=== PATIENT | female | born 1980 | race Caucasian/White ===

== ENCOUNTER 2019-01-30 10:24 | Emergency (ER) | payer MEDICAID, OTHER ==
[~2019-01-30] VITALS: Ht 152.4 cm; Wt 71.0 kg
--- NOTE | 2019-01-30 11:08 | NUR ---
PT AMBULATORY TO ROOM T1 W/ C/O N/V/D. STATES DIARRHEA STARTED SATURDAY. UNKNOWN AMOUNTS PER DAY. N/V STARTED TODAY. PT HAS NOT HAD BOUTS OF N/V/D WHILE IN ED. PT RESTING ON GURNEY. NADN. MONITORS APPLIED. WARM BLANKET PROVIDED.
[2019-01-30 11:20] LABS: HCG UR SG 1.009 (1.003-1.030); MICROSCOPIC NOT IND
[2019-01-30 11:25] LABS: CULTURE INDICATED? NO
[2019-01-30 11:51] LABS: BASOPHILS # (AUTO) 0.02 x10^3/uL (0-0.1); BASOPHILS % (AUTO) 0 % (0-1); EOSINOPHILS # (AUTO) 0.03 x10^3/uL (0-0.4); EOSINOPHILS % (AUTO) 0 % (1-7); LYMPHOCYTES # (AUTO) 1.65 x10^3/uL (1-3.4); LYMPHOCYTES % (AUTO) 17 % (22-44); MD NO; MEAN CORPUSCULAR HEMOGLOBIN 32.1 pg (27.0-34.8); MEAN CORPUSCULAR HGB CONC 33.8 g/dL (32.4-35.8); MEAN CORPUSCULAR VOLUME 95.2 fL (80-100); MEAN PLATELET VOLUME 10.1 fL (7.4-10.4); MONOCYTES # (AUTO) 0.57 x10^3/uL (0.2-0.8); MONOCYTES % (AUTO) 6 % (2-9); NEUTROPHILS # (AUTO) 7.48 x10^3/uL (1.8-6.8); NEUTROPHILS % (AUTO) 77 % (42-75); PLATELET COUNT 221 x10^3/uL (130-400); RED BLOOD COUNT 4.28 x10^6/uL (3.82-5.3); RED CELL DISTRIBUTION WIDTH 13.2 % (9.6-15.2)
--- NOTE | 2019-01-30 11:51 | NUR ---
PT RESTING ON GURNEY. NADN. DAVILA.
[2019-01-30 11:58] LABS: ALANINE AMINOTRANSFERASE 30 U/L (12-78); ALBUMIN 3.7 g/dL (3.4-5.0); ANION GAP 7 mmol/L (5-15); CALCIUM 9.2 mg/dL (8.5-10.1); CHLORIDE 110 mmol/L (98-107); CREATININE 0.57 mg/dL (0.55-1.02)
[2019-01-30 12:00] LABS: ALKALINE PHOSPHATASE 82 U/L (45-117); BILIRUBIN,TOTAL 0.4 mg/dL (0.2-1.0); TOTAL PROTEIN 7.1 g/dL (6.4-8.2)
[2019-01-30 12:46] VITALS: BP 133/89
== END 2019-01-30 12:48 | disposition home or self-care (01) ==
LOC: ED 12:36
DX: R11.2 Nausea with vomiting, unspecified (principal); R19.7 Diarrhea, unspecified; J45.909 Unspecified asthma, uncomplicated
CPT/HCPCS: 36415; 74021; 80053; 81003; 81025; 83690; 85025; 99284

== ENCOUNTER 2019-02-02 17:19 | Emergency (ER) | payer MEDICAID, OTHER ==
[~2019-02-02] VITALS: Ht 152.4 cm; Wt 64.0 kg
--- NOTE | 2019-02-02 17:34 | NUR ---
PT STATES SHE STOOD UP AND THEN WOKE UP ON THE GROUND. PT STATES SHE HAS NEVER HAD THIS HAPPEN BEFORE. PT BIB EMS. 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 VSS. NAD.
[2019-02-02 17:57] LABS: BASOPHILS # (AUTO) 0.03 x10^3/uL (0-0.1); BASOPHILS % (AUTO) 0 % (0-1); EOSINOPHILS # (AUTO) 0.06 x10^3/uL (0-0.4); EOSINOPHILS % (AUTO) 1 % (1-7); LYMPHOCYTES # (AUTO) 1.63 x10^3/uL (1-3.4); LYMPHOCYTES % (AUTO) 22 % (22-44); MD NO; MEAN CORPUSCULAR HEMOGLOBIN 31.8 pg (27.0-34.8); MEAN CORPUSCULAR HGB CONC 33.2 g/dL (32.4-35.8); MEAN CORPUSCULAR VOLUME 95.8 fL (80-100); MEAN PLATELET VOLUME 9.9 fL (7.4-10.4); MONOCYTES # (AUTO) 0.54 x10^3/uL (0.2-0.8); MONOCYTES % (AUTO) 7 % (2-9); NEUTROPHILS # (AUTO) 5.14 x10^3/uL (1.8-6.8); NEUTROPHILS % (AUTO) 70 % (42-75); PLATELET COUNT 263 x10^3/uL (130-400); RED BLOOD COUNT 4.43 x10^6/uL (3.82-5.3); RED CELL DISTRIBUTION WIDTH 13.3 % (9.6-15.2)
[2019-02-02 18:00] LABS: ALBUMIN 3.9 g/dL (3.4-5.0); ANION GAP 6 mmol/L (5-15); CALCIUM 9.2 mg/dL (8.5-10.1); CHLORIDE 109 mmol/L (98-107); CREATININE 0.71 mg/dL (0.55-1.02)
--- NOTE | 2019-02-02 18:04 | NUR ---
PT OOB AND AMBULATED TO BATHROOM INDEPENDENT. CLEAN CATCH URINE SAMPLE COLLECTED AND PT RTD TO ROOM W/O INCIDENT. VSS, NAD NOTED.
[2019-02-02 18:05] LABS: TROPONIN I < 0.015 ng/mL (0.000-0.045)
[2019-02-02 18:13] VITALS: BP 124/81
--- NOTE | 2019-02-02 18:16 | NUR ---
ORTHOSTATIC VITALS DISCUSSED WITH DR. TO. PO FLUIDS AT BEDSIDE, PT ENCOURAGED TO REHYDRATE
--- NOTE | 2019-02-02 18:35 | NUR ---
PLAN FOR DISCHARGE DISCUSSED WITH PT AND PT VERBALIZED UNDERSTANDING.
--- NOTE | 2019-02-02 19:11 | NUR ---
Patient/Caregiver given discharge instructions and they have confirmed that they understand the instructions. Patient ambulatory with steady gait.
--- NOTE | 2019-02-02 19:12 | NUR ---
1850 LATE ENTRY, PT CONSUMED 500ML PO FLUIDS W/O DIFFICULTY
== END 2019-02-02 19:28 | disposition home or self-care (01) ==
LOC: ED 19:02
DX: R55 Syncope and collapse (principal); J45.909 Unspecified asthma, uncomplicated; R11.0 Nausea; R42 Dizziness and giddiness
CPT/HCPCS: 36415; 71046; 80048; 82040; 84484; 84703; 85025; 93005; 99284